=== PATIENT | female | born 1985 | race Caucasian/White ===

== ENCOUNTER 2018-08-10 03:38 | Inpatient (IN) | payer OTHER ==
[2018-08-10] MEDS ORDERED: Oxytocin 10 UNITS/ML VIAL ONE (03:52)
[2018-08-10] MEDS ORDERED: Lidocaine 1% (PF) 30 ML VIAL ONE ×2 (03:52→04:05)
[2018-08-10] MEDS ORDERED: NS / Oxytocin 40 units/1000ml 1,000 ML ONE (04:04)
--- NOTE | 2018-08-10 04:27 | PDOC.LDHP ---
Labor and Delivery H&P Chief complaint: contractions HPI: CTX started at 0200. Becoming more painful so came in. Complete on presentation in ER. Current gestational age (weeks): 39 Due date: 08/15/18 Dating criteria: last menstrual period, first trimester ultrasound Grav: 2 Para: 1 Current complications: none Abnormal US findings: No Current medications: none Previous surgical history: none Allergies/Adverse Reactions: Allergies Allergy/AdvReac Type Severity Reaction Status Date / Time No Known Drug Allergies Allergy Verified 10/02/15 19:37 - Physical Exam Vital signs reviewed and normal: yes General: NAD, resting, breathing through contractions, other Heart: RRR Lungs: CTAB Abdomen: gravid Extremeties: no edema FHT: category 1 - Vaginal Exam cm dilated: 10 Effacement: 100% Station: 3+ - OB Labs Blood type: O RH: negative Antibody Screen: negative HIV: negative RPR: negative HEPSAg: negative 1 hour GCT: negative GBS: negative Urine drug screen: not done Rubella: immune - Assessment L&D Assessment: term patient in labor - Plan Plan: admit to L&D, informed consent obtained
--- NOTE | 2018-08-10 04:30 | PDOC.OPDEL ---
OB Operative/Delivery Note Delivery Dr/Surgeon: Linden Assist: Abbasi Pre-Delivery Diagnosis: active labor Procedure/Post Delivery Dx: spontaneous vaginal delivery Weeks gestation: 39 Anesthesia: local - Findings New baby Sex: male Weight: 7 lb 11 oz - 1 min: 8 - 5 min: 9 - Additional Findings/Plan Placenta delivered: spontaneous Repaired Obstetrical Laceration: 1st degree Estimated blood loss: 149 Post delivery plan: routine recovery
[2018-08-10] MEDS ORDERED: Methylergonovine 0.2 MG/ML VIAL IM PRN (04:31)
[2018-08-10] MEDS ORDERED: Ibuprofen 800 MG TAB PO PRN (04:31)
[2018-08-10] MEDS ORDERED: HYDROcodone/Acetaminophen 5/325 mg Tablet PO PRN (04:31)
[2018-08-10] MEDS ORDERED: Ondansetron PF 4 MG/2 ML Vial IVP PRN (04:31)
[2018-08-10] MEDS ORDERED: NS / Oxytocin 40 units/1000ml 1,000 ML IV PRN (04:31)
[2018-08-10] MEDS ORDERED: Promethazine HCl 25 MG/ML VIAL IM PRN (04:31)
[2018-08-10] MEDS ORDERED: Lidocaine 1% (PF) 30 ML VIAL SC PRN (04:31)
[2018-08-10] MEDS ORDERED: Carboprost 250 MCG/ML AMP IM PRN (04:31)
[2018-08-10] MEDS ORDERED: Misoprostol 200 MCG TAB PR PRN (04:31)
[2018-08-10 04:55] VITALS: BMI 34.0
[2018-08-10 06:04] LABS: Hemoglobin 11.5 g/dL (12.0-16.0); Mean Corpuscular HGB CONC 34.5 g/dL (32.0-36.0); Mean Corpuscular Hemoglobin 30.3 pg (27.0-31.0); Mean Corpuscular Volume 87.7 fL (78.0-98.0); Mean Platelet Volume 6.2 fL (7.4-10.4); Platelet Count 278 thou/uL (130-400); RBC Distribution Width 12.1 % (11.5-14.5); Red Blood Cell (RBC) Count 3.81 mill/uL (4.20-5.40); White Blood Cell (WBC) Count 20.2 thou/uL (4.8-10.8)
[2018-08-10 06:38] LABS: Syphilis Antibody Nonreactive (Nonreactive); Syphilis Antibody Index 0.02 S/CO (<1.00 Non-Reactive)
[2018-08-10 06:43] LABS: HBSAg Index 0.28 S/CO (0-0.99); Hep B Surf Ag Non-Reactive S/CO (NonReactive)
[2018-08-10] MEDS ORDERED: NS / Oxytocin 40 units/1000ml 1,000 ML IV SCH (08:45)
[2018-08-10] MEDS ORDERED: Milk Of Magnesia 30 ML UDCUP PO PRN (08:45)
[2018-08-10] MEDS ORDERED: Benzocaine-Menthol 82.5 ML CAN TOP PRN (08:45)
[2018-08-10] MEDS ORDERED: Lanolin Ointment 7 GM TUBE TOP PRN (08:45)
[2018-08-10] MEDS ORDERED: Bisacodyl 10 MG SUPP PR PRN (08:45)
[2018-08-10] MEDS: Docusate Calcium (SURFAK) 240 MG CAP PO SCH ×2 (10:23→21:04)
[2018-08-10] MEDS: HYDROcodone/Acetaminophen 5/325 mg Tablet PO PRN ×3 (10:24→21:04)
[2018-08-10] MEDS: Ferrous Sulfate 325 MG TAB PO SCH ×2 (10:43→15:06)
[2018-08-10] MEDS: Ibuprofen 800 MG TAB PO SCH ×3 (10:43→21:04)
[2018-08-10] MEDS ORDERED: Hydrocortisone/Pramoxine (Proctofoam HC) 10 GM BOX PR PRN (19:06)
--- NOTE | 2018-08-10 21:29 | OP ---
DATE OF PROCEDURE: 08/10/2018 PREOPERATIVE DIAGNOSIS: Term intrauterine in labor. POSTOPERATIVE DIAGNOSIS: Term intrauterine in labor. PROCEDURE PERFORMED: Normal spontaneous vaginal delivery and laceration repair of a first-degree perineal laceration. ANESTHESIA: Local. QUANTITATIVE BLOOD LOSS: 147 mL. BRIEF DELIVERY SUMMARY: This is a 32-year-old G2, now P2, who presented in active labor, she was complete. Upon presentation to the hospital, she quickly delivered a live male head away, mouth and nares were bulb suctioned at the perineum. There was no nuchal cord. Shoulders and body easily followed and the was placed on mother's abdomen. The umbilical cord was doubly clamped and cut and cord blood was sent for analysis. Placenta delivered spontaneously and intact with a three-vessel umbilical cord. Uterine fundus was firm following evacuation of the placenta. Due to the rapid nature of her labor, she did not have an IV at that time, so IM Pitocin was given 10 units. There was a first-degree perineal laceration which was repaired under local anesthesia using 2-0 Vicryl suture in standard running fashion with excellent hemostasis. Mom and baby were left with the nurse in excellent condition attempting to breastfeed. Job ID: [id number]
[2018-08-11] MEDS: HYDROcodone/Acetaminophen 5/325 mg Tablet PO PRN ×3 (02:00→12:45)
[2018-08-11 04:52] VITALS: TEMP 98.2
[2018-08-11] MEDS: Ibuprofen 800 MG TAB PO SCH ×2 (05:15→14:21)
[2018-08-11] MEDS: Ferrous Sulfate 325 MG TAB PO SCH (07:39)
[2018-08-11] MEDS: Docusate Calcium (SURFAK) 240 MG CAP PO SCH (08:42)
[2018-08-11 08:54] VITALS: BP 112/74
--- NOTE | 2018-08-11 16:02 | PDOC.PP ---
Post Progress Note Post Day #: 1 Subjective: Doing well. No c/o. well. PO intake tolerated: yes Flatus: yes Ambulation: yes Vital Signs (12 hours) Temp Pulse Resp BP Pulse Ox 08/11/18 08:53 98.2 F 90 20 112/74 98 08/11/18 04:25 98.2 F 104 H 18 133/55 L Weight Weight 180 lb - Physical Examination General: NAD Cardiovascular: no m/r/g, RRR Respiratory: clear to auscultation bilaterally, non-labored breathing Abdominal: + bowel sounds, lochia, no distention, appropriately TTP Result Diagrams: 08/10/18 05:51 Additional Labs: Post Labs Blood Type O NEGATIVE 08/10/18 05:51 Hep Bs Antigen Non-Reactive S/CO (NonReactive) 08/10/18 05:51 (1) Vaginal delivery Code(s): O80 - ENCOUNTER FOR FULL-TERM UNCOMPLICATED DELIVERY Status: Acute - Assessment/Plan Routine PP care D/C home F/U in 6 weeks
--- NOTE | 2018-08-12 05:33 | DIS ---
DATE OF ADMISSION: 08/10/2018 DATE OF DISCHARGE: 08/11/2018 DISCHARGE DIAGNOSIS: Status post normal spontaneous vaginal delivery. BRIEF HOSPITAL COURSE: This is a 32-year-old, G2, now P2, who presented in active labor. She had an uncomplicated delivery and a routine course with no complications and she was discharged home on day 1, to follow up with me in 6 weeks. Job ID: [id number]
== END 2018-08-11 16:40 | disposition home or self-care (01) | DRG 807 ==
LOC: L&D/OP 03:38 → L&D 04:02 → 3SW 09:10
PROVIDERS: ADMIT Family Medicine; ATTEND Family Medicine
PROC: 10E0XZZ Delivery of Products of Conception, External Approach (ICD-10-PCS; principal; 2018-08-10)
PROC: 0HQ9XZZ Repair Perineum Skin, External Approach (ICD-10-PCS; 2018-08-10)
DX: O70.0 First degree perineal laceration during delivery (principal); Z37.0 Single live birth; Z3A.39 39 weeks gestation of pregnancy
CPT/HCPCS: 36415; 85027; 85461; 86780; 86850; 86900; 86901; 87340; 90384; 96372; 99285; J2001; J2590

== ENCOUNTER 2025-01-22 13:36 | Outpatient (CLI) | payer OTHER | END 2025-01-22 13:37 | disposition home or self-care (01) | LOC: BICMAMMO 13:36 | PROVIDERS: ATTEND Internal Medicine | DX: Z12.31 Encounter for screening mammogram for malignant neoplasm of breast (principal); N64.89 Other specified disorders of breast; Z98.890 Other specified postprocedural states | CPT/HCPCS: 77063; 77067 ==